=== PATIENT | female | born 1985 | race Caucasian/White ===

== ENCOUNTER → 2022-09-16 10:03 | Outpatient (BNVA) | payer BC, SELFPAY | PROVIDERS: Family Provider Physician Assistant Medical; PCP Family Medicine; Visit Provider Clinical Nurse Specialist Adult Health | DX: R35.0 Frequency of micturition (principal); N30.00 Acute cystitis without hematuria | CPT/HCPCS: 81000; 87086 ==

== ENCOUNTER → 2023-12-15 10:50 | Outpatient (BNVA) | payer BC, SELFPAY | PROVIDERS: Family Provider Physician Assistant Medical; PCP Family Medicine; Visit Provider Clinical Nurse Specialist Adult Health | DX: Z00.00 Encounter for general adult medical examination without abnormal findings (principal); Z12.4 Encounter for screening for malignant neoplasm of cervix | CPT/HCPCS: 80053; 80061; 85025; 87624 ==

== ENCOUNTER 2024-01-05 09:22 | Outpatient (CLI) | payer BC, SELFPAY ==
--- NOTE | 2024-01-05 09:30 | MM_ITS ---
WS: [id number] SCREENING DIGITAL BREAST TOMOSYNTHESIS MAMMOGRAM WITH CAD HISTORY: screening mammogram COMPARISON: None available. Bilateral CC and MLO with tomosynthesis and synthetic mammography submitted. Computer aided detection analyzed. Breast composition: There are scattered areas of fibroglandular density. Well-circumscribed mass in t he anterior LEFT breast near 2-3 o'clock measures 1.7 x 2.0 cm and needs to be further evaluated. Jv ign calcification RIGHT breast. IMPRESSION: MM/[place] [id number] BI-RADS: 0-Incomplete: Need additional imaging evaluation FOLLOW UP: Need Additional Imaging LEFT breast: Spot compression views (CC and MLO). True ML. Ultrasound to follow if abnormality persists.
== END 2024-01-05 09:23 | disposition home or self-care (01) ==
LOC: MOBLMAM 09:30
PROVIDERS: PCP Clinical Nurse Specialist Adult Health; Visit Provider Clinical Nurse Specialist Adult Health
DX: Z12.31 Encounter for screening mammogram for malignant neoplasm of breast; N63.21 Unspecified lump in the left breast, upper outer quadrant
CPT/HCPCS: 77063; 77067

== ENCOUNTER 2024-01-25 09:00 | Outpatient (CLI) | payer BC, SELFPAY ==
--- NOTE | 2024-01-25 09:03 | US_ITS ---
WS: [id number] ADDITIONAL VIEWS LEFT MAMMOGRAM with tomosynthesis. LEFT BREAST ULTRASOUND HISTORY: abnormal left breast COMPARISON: 01/05/2024 LEFT MAMMOGRAM: Spot compression views and true ML with tomosynthesis and sympathetic mammography. Ill-defined and partially scarred soft tissue mass in the upper outer quadrant of the LEFT breast at a middle depth. Mass measures 2.2 x 2.2 x 2.2 cm. Margins are slightly obscured. No associated calcif ications. LEFT BREAST ULTRASOUND 2-D and color Doppler imaging submitted. Mass in the LEFT breast is identified at 1:00, 2 cm from the nipple. This is an ovoid shaped mass con taining fat and a few cystic foci. Mass measures 2.5 x 0.8 x 2.4 cm. There is no shadowing. No increa sed vascularity. Favor this is a benign breast hamartoma. IMPRESSION: US/US breast LT limited* [id number] BI-RADS: 3-Probably Benign FOLLOW UP: 6 Month Follow-up Recommend ultrasound evaluation in 6 months of the LEFT breast mass. Favor this is a benign breast hamartoma. As there are no prior studies for comparison rec ommend short interval follow-up. Biopsy should not be necessary for a hamartoma .
--- NOTE | 2024-01-25 09:30 | MM_ITS ---
WS: [id number] ADDITIONAL VIEWS LEFT MAMMOGRAM with tomosynthesis. LEFT BREAST ULTRASOUND HISTORY: abnormal left breast COMPARISON: 01/05/2024 LEFT MAMMOGRAM: Spot compression views and true ML with tomosynthesis and sympathetic mammography. Ill-defined and partially scarred soft tissue mass in the upper outer quadrant of the LEFT breast at a middle depth. Mass measures 2.2 x 2.2 x 2.2 cm. Margins are slightly obscured. No associated calcif ications. LEFT BREAST ULTRASOUND 2-D and color Doppler imaging submitted. Mass in the LEFT breast is identified at 1:00, 2 cm from the nipple. This is an ovoid shaped mass con taining fat and a few cystic foci. Mass measures 2.5 x 0.8 x 2.4 cm. There is no shadowing. No increa sed vascularity. Favor this is a benign breast hamartoma. IMPRESSION: MM/[place] [id number] BI-RADS: 3-Probably Benign FOLLOW UP: 6 Month Follow-up Recommend ultrasound evaluation in 6 months of the LEFT breast mass. Favor this is a benign breast hamartoma. As there are no prior studies for comparison rec ommend short interval follow-up. Biopsy should not be necessary for a hamartoma .
== END 2024-01-25 09:01 | disposition home or self-care (01) ==
LOC: RAD 09:01
PROVIDERS: PCP Clinical Nurse Specialist Adult Health; Visit Provider Clinical Nurse Specialist Adult Health
DX: N63.25 Unspecified lump in the left breast, overlapping quadrants (principal)
CPT/HCPCS: 76642; 77061; G0279

== ENCOUNTER 2024-07-24 10:00 | Outpatient (CLI) | payer BC, SELFPAY ==
--- NOTE | 2024-07-24 10:00 | US_ITS ---
WS: [id number] ULTRASOUND LEFT BREAST HISTORY: recheck on left breast mass COMPARISON: Ultrasound 01/25/2024, mammogram 01/25/2024, 01/05/2024 TECHNIQUE: 2-D and Doppler. Oval mass which is mixed complex with solid and cystic components is reidentified at 1:00, 2 cm from the nipple. Mass measures 2.4 x 2.6 x 0.9 cm. No increased vascularity. No change in size. US/US breast LT limited* [id number] IMPRESSION: BI-RADS: 2 - Benign. FOLLOW-UP: 6 Month Follow-up Patient should return for annual screening mammogram in January 2025. No addition al imaging of the mass in the upper outer quadrant of the LEFT breast unless th ere is an interval change.
== END 2024-07-24 10:05 | disposition home or self-care (01) ==
PROVIDERS: PCP Clinical Nurse Specialist Adult Health; Visit Provider Clinical Nurse Specialist Adult Health
DX: N63.21 Unspecified lump in the left breast, upper outer quadrant (principal)
CPT/HCPCS: 76642

== ENCOUNTER → 2024-09-27 10:25 | Outpatient (BNVA) | payer BC, SELFPAY | PROVIDERS: PCP Clinical Nurse Specialist Adult Health; Visit Provider Clinical Nurse Specialist Adult Health | DX: A64 Unspecified sexually transmitted disease (principal); A59.01 Trichomonal vulvovaginitis; N30.20 Other chronic cystitis without hematuria | CPT/HCPCS: 87070; 87205; 87491; 87591; 87661 ==

== ENCOUNTER 2025-01-31 09:43 | Outpatient (CLI) | payer OTHER, SELFPAY ==
--- NOTE | 2025-01-31 09:50 | MM_ITS ---
WS: [id number] BILATERAL SCREENING DIGITAL TOMOSYNTHESIS MAMMOGRAM WITH CAD HISTORY: SCREENING COMPARISON: 01/05/2024, 01/25/2024 and 07/24/2024 Bilateral CC and MLO views with tomosynthesis and synthetic mammography submitted. Computer aided detection analyzed. Breast composition: The breasts are heterogeneously dense, which may obscure small masses. No suspicious masses, microcalcifications or architectural distortion. Reidentified is a partially obscured mass upper outer quadrant LEFT breast measuring 1.6 x 2.0 x 1.8 cm. Noted to contain fat on both mammography and ultrasound suggesting this is a benign hamartoma. No additional areas of asymmetry or mass. MM/MM scr tomosynthesis [id number] IMPRESSION: BI-RADS: 2 - Benign FOLLOW UP: 1 Year Follow-up
== END 2025-01-31 09:44 | disposition home or self-care (01) ==
PROVIDERS: PCP Clinical Nurse Specialist Adult Health; Visit Provider Nurse Practitioner Family
DX: Z12.31 Encounter for screening mammogram for malignant neoplasm of breast (principal); R92.333 Mammographic heterogeneous density, bilateral breasts; N63.21 Unspecified lump in the left breast, upper outer quadrant
CPT/HCPCS: 77063; 77067